=== PATIENT | female | born 1950 | race Caucasian/White ===

== ENCOUNTER 2023-01-20 16:48 | Emergency (ER) | payer MEDICARE ==
[~2023-01-20] VITALS: Ht 170.2 cm; Wt 81.6 kg
--- NOTE | 2023-01-20 16:52 | NUR ---
KHUSHBU WEI TO THE LOBBY
[2023-01-20 17:03] VITALS: BP 142/91; PULSE 89; RESP 22; TEMP 98.1; O2SAT 98
[2023-01-20] MEDS ORDERED: LORazepam 0.5 MG TAB PO ONE (18:25)
[2023-01-20 20:02] VITALS: BP 154/91; PULSE 83; RESP 20; O2SAT 98
--- NOTE | 2023-01-20 20:02 | NUR ---
Patient discharged with ER MD Campbell aware of Vital signs. Written and verbal after care instructions given and explained. Patient verbalized understanding. Ambulatory with steady gait. ID band removed. All questions addressed prior to discharge. Advised to follow up with PMD.
== END 2023-01-20 20:02 | disposition home or self-care (01) ==
LOC: MED 16:48
DX: F41.9 Anxiety disorder, unspecified (principal); I10 Essential (primary) hypertension; Z79.899 Other long term (current) drug therapy
CPT/HCPCS: 99283